=== PATIENT | female | born 1950 | race Hispanic/Latino ===

== ENCOUNTER 2017-11-24 07:40 | Day surgery (SDC) | payer MEDICARE ==
[2017-11-24] MEDS ORDERED: ECOTRIN PO NR (08:15)
[2017-11-24] MEDS: NACL 0.9% 500 ML 500 ML IV SCH ×3 (08:52→10:25)
[2017-11-24 09:03] LABS: Basophils # (Auto) 0.1 K/mm3 (0.0-0.1); Basophils % (Auto) 0.9 % (0.0-1.8); Eosinophils # (Auto) 0.1 K/mm3 (0.0-0.4); Eosinophils % (Auto) 0.8 % (0.0-4.3); Hemoglobin 13.5 gm/dl (10.1-14.3); Lymphocytes # (Auto) 2.8 K/mm3 (1.2-5.4); Lymphocytes % (Auto) 28.2 % (13.4-35.0); Mean Corpuscular HGB Conc 33 % (30-34); Mean Corpuscular Hemoglobin 29 pg (28-32); Mean Corpuscular Volume 87 fl (79-97); Monocytes # (Auto) 0.8 K/mm3 (0.0-0.8); Monocytes % (Auto) 8.1 % (0.0-7.3); Platelet Count 357 K/mm3 (140-440); Red Blood Count 4.72 M/mm3 (3.65-5.03); Red Cell Distribution Width 14.5 % (13.2-15.2)
[2017-11-24 09:24] LABS: Calcium 10.1 mg/dL (8.4-10.2)
[2017-11-24 09:29] LABS: INR 0.93 (0.87-1.13); Partial Thromboplastin Time 28.5 Sec. (24.2-36.6)
[2017-11-24] MEDS ORDERED: XYLOCAINE 2% INFILTRATI ONE (09:30)
[2017-11-24] MEDS ORDERED: NACL 0.9% 0 ML ONE (09:40)
[2017-11-24] MEDS: VERSED ONE ×2 (09:54→10:30)
[2017-11-24] MEDS: SUBLIMAZE ONE ×2 (09:55→10:30)
[2017-11-24] MEDS: HEPARIN 10,000 UNITS/10 ML ONE ×3 (09:55→10:34)
[2017-11-24] MEDS: XYLOCAINE 2% INFILTRATI ONE ×2 (09:55→10:30)
[2017-11-24] MEDS: CALAN ONE ×3 (09:55→10:34)
[2017-11-24] MEDS: NITROGLYCERIN SYRINGE 3 ML ONE ×4 (09:56→10:34)
[2017-11-24] MEDS: HEPARIN/NS 5000 UNIT/500ML(CATH LAB) 1,000 ML IR ONE ×2 (09:56→10:25)
--- NOTE | 2017-11-24 11:19 | Cardiac Catherization Report ---
CARDIAC CATHETERIZATION REFERRING DISPOSAL WORKER: Dr. Stefano Maradiaga. INDICATION FOR PROCEDURE: The patient is a very pleasant 67-year-old female with history of diabetes, hypertension, high cholesterol, who presents to Dr. Maradiaga just several days ago with severe shortness of breath, chest tightness. She is on Imdur, carvedilol, atorvastatin, aspirin and LIZETT inhibition, referred for left heart catheterization due to prominent symptoms. Echocardiogram reveals normal LV function, moderate MR, diastolic dysfunction. Risks, benefits, the alternatives discussed prior to obtaining informed consent. PROCEDURE IN DETAIL: The patient brought to supervisor labor gang in postoperative state, prepped and draped in sterile fashion. Matt's test in right hand was normal. A 2 mL of 2% lidocaine used to anesthetize the right wrist. A standard 6-Comoran hydrophilic sheath used to cannulate the right radial artery via modified Seldinger technique. All exchanges performed to exchange a J-tip guidewire. JL3.5 catheter used to engage the left main. No dampening or ventricularization. Cineangiography performed in all projections. JR4 catheter was used to cross the aortic valve under fluoroscopic guidance. Left ventriculography performed in 30 LAST and 30 [place]UGUESE projections via hand injections, catheter flushed. Manual pullback performed with continuous pressure monitoring. Catheter used to engage the right coronary. No dampening or ventricularization. Cineangiography performed in all projections. DATA: Aortic pressure is 110/60, LV pressure is 110, LVEDP of 10 mmHg. Left ventriculography revealed normal systolic performance with estimated ejection fraction of 55-60% with 2+ MR. No evidence of aortic stenosis. CORONARY ANATOMY: This is a right dominant system. Right coronary is a moderate sized vessel, courses AV groove, distally bifurcates in the posterior descending and posterolateral branch, long complex disease in the proximal and mid right coronary involving with a maximal narrowing of 95% in the mid segment. Left main, no significant disease, bifurcates left anterior descending and left circumflex. Left circumflex is a small vessel, but has a 99% ostial stenosis with EKTA 3 flow. LAD is a moderate sized vessel, courses anterior intergroove, wraps around the apex, gives collaterals to the distal right coronary. A 70% proximal/ostial LAD is noted, 70% proximal first diagonal is also noted. CONCLUSIONS: 1. Severe multivessel coronary disease including 99% ostial left circumflex and 70% ostial/proximal LAD, 70% proximal first diagonal and long complex 90% proximal/mid right coronary stenosis. 2. Preserved left ventricular systolic performance. 3. No evidence of aortic stenosis. 4. Moderate MR. The patient is clinically stable, chest pain free. At this point given multivessel disease, diabetes, I believe complete revascularization with coronary bypass is probably the best option. Standard radial care. She will be sent to [facility] with Dr. Alfonso Obrien for consideration of the same. She is clinically stable and asymptomatic for said transfer. Results of the procedure explained in length to the patient and family. All questions and concerns were addressed. JOB# [id number] MARIA ELENA/JULIANE
[2017-11-24 12:39] VITALS: BP 117/64
--- NOTE | 2017-11-25 14:56 | Short Stay Summary ---
Short Stay Documentation Date of service: 11/24/17 - History H&P: obtained from office - Allergies and Medications Current Medications: Allergies No Known Allergies Allergy (Verified 11/24/17 08:14) Home Medications Medication Instructions Recorded Confirmed Last Taken Type Aspirin [Adult Low Dose Aspirin EC] 81 mg PO QDAY 11/24/17 11/24/17 11/23/17 History Atorvastatin Calcium 20 mg PO QDAY 11/24/17 11/24/17 11/23/17 History Carvedilol 25 mg PO BID 11/24/17 11/24/17 11/23/17 History Furosemide [Lasix TAB] 40 mg PO BID 11/24/17 11/24/17 11/23/17 History Glimepiride [Amaryl] 2 mg PO QDAY 11/24/17 11/24/17 11/23/17 History ISOSORBIDE MONOnitrate [Imdur ER] 30 mg PO QDAY 11/24/17 11/24/17 11/23/17 History Levothyroxine Sodium 75 mcg PO QDAY 11/24/17 11/24/17 11/23/17 History Lisinopril [Zestril TAB] 10 mg PO QDAY 11/24/17 11/24/17 11/23/17 History Potassium Chloride [Klor-Con M20] 20 meq PO BID 11/24/17 11/24/17 11/23/17 History Sitagliptin Phos/Metformin HCl 50 - 500 mg PO QDAY 11/24/17 11/24/17 11/23/17 History [Janumet 50-500 mg Tablet] traMADol [Ultram 50 MG tab] 25 mg PO Q8HR PRN 11/24/17 11/24/17 1 Week Ago History ~11/17/17 - Brief post op/procedure progress note Date of procedure: 11/24/17 Pre-op diagnosis: chest pain Post-op diagnosis: other (CAD) Procedure: [facility] - see dictated cath report Anesthesia: local Estimated blood loss: none Condition: stable - Disposition Condition at discharge: Stable Disposition: [id number] ANOTHER TYPE HLTHCARE - Discharge Diagnoses (1) CAD (coronary artery disease) Status: Chronic (2) HTN (hypertension) Status: Chronic (3) Diabetes Status: Chronic (4) Hyperlipidemia Status: Chronic Short Stay Discharge Plan Diet: low fat, low cholesterol, low salt Wound: open to air, keep clean and dry, per your surgeon's advice Follow up with: PRIMARY CARE, [Primary Care Provider] - 7 Days
== END 2017-11-24 13:10 | disposition other institution (70) ==
LOC: CATHLABREC 07:40
PROVIDERS: ATTEND Internal Medicine
DX: I25.119 Atherosclerotic heart disease of native coronary artery with unspecified angina pectoris (principal); I10 Essential (primary) hypertension; E11.9 Type 2 diabetes mellitus without complications; E78.5 Hyperlipidemia, unspecified; E03.9 Hypothyroidism, unspecified; E78.00 Pure hypercholesterolemia, unspecified; Z90.710 Acquired absence of both cervix and uterus; Z82.49 Family history of ischemic heart disease and other diseases of the circulatory system; Z87.891 Personal history of nicotine dependence; Z98.42 Cataract extraction status, left eye; Z98.41 Cataract extraction status, right eye; Z79.899 Other long term (current) drug therapy; Z98.890 Other specified postprocedural states
CPT/HCPCS: 36415; 80048; 82962; 85025; 85610; 85730; 93005; 93010; 93458; 99156; 99157; C1894; J1644; J2250; J3010; J7040; J0153; Q9967

== ENCOUNTER 2018-12-06 07:41 | Day surgery (SDC) | payer MEDICARE ==
[2018-12-06 07:10] LABS: Basophils # (Auto) 0.1 K/mm3 (0.0-0.1); Basophils % (Auto) 0.8 % (0.0-1.8); Eosinophils # (Auto) 0.2 K/mm3 (0.0-0.4); Eosinophils % (Auto) 1.8 % (0.0-4.3); Hematocrit 34.6 % (30.3-42.9); Lymphocytes # (Auto) 2.7 K/mm3 (1.2-5.4); Lymphocytes % (Auto) 30.3 % (13.4-35.0); Mean Corpuscular HGB Conc 32 % (30-34); Mean Corpuscular Volume 89 fl (79-97); Monocytes # (Auto) 0.9 K/mm3 (0.0-0.8); Monocytes % (Auto) 9.9 % (0.0-7.3); Platelet Count 298 K/mm3 (140-440); Red Blood Count 3.89 M/mm3 (3.65-5.03); Red Cell Distribution Width 13.8 % (13.2-15.2)
[2018-12-06 07:27] LABS: Calcium 9.1 mg/dL (8.4-10.2)
[~2018-12-06 07:41] MED LIST: SODIUM CHLORIDE 0.9% 500 ML 500 ML IV SCH
[2018-12-06 08:04] LABS: INR 1.04 (0.87-1.13)
[2018-12-06] MEDS ORDERED: HEPARIN/NS 5000 UNIT/500ML 1,000 ML IR ONE (08:11)
[2018-12-06] MEDS ORDERED: HEPARIN 10,000 UNITS/10 ML VIAL ONE (08:11)
[2018-12-06] MEDS: MIDAZOLAM 2 MG/2 ML INJ ONE ×2 (08:40→08:42)
[2018-12-06] MEDS: fentaNYL 100 MCG/2 ML INJ ONE ×2 (08:40→08:42)
[2018-12-06] MEDS: LIDOCAINE (2%) 20 MG/1 ML VIAL 20 ML MDV INFILTRATI ONE ×2 (08:41→08:43)
--- NOTE | 2018-12-06 10:08 | Cardiac Catherization Report ---
CARDIAC CATHETERIZATION REFERRING PHYSICIAN: Angelito Elaine MD INDICATION FOR PROCEDURE: The patient is a pleasant 68-year-old female with history of coronary bypass surgery, having accelerating symptoms including accelerating shortness of breath, which was thought to be an anginal equivalent. She is sent for repeat heart catheterization. Risks, benefits, alternatives explained at length prior to obtaining informed consent. PROCEDURE IN DETAIL: The patient was brought to catheterization lab in a postabsorptive state, prepped and draped in sterile fashion. Right groin was used due to history of coronary artery bypass graft. A standard 5-Czech sheath used to cannulate the right common femoral artery via modified Seldinger technique. All exchanges performed to exchange a J-tip guidewire. JL3.5 of catheter was used to engage the left main. No dampening or ventricularization. Cineangiography performed in all projections. JR4 catheter used to cross the aortic valve under fluoroscopic guidance. Left ventriculography performed in 30 LAST and 30 [place] projections via hand injections, catheter flushed. Manual pullback performed with continuous pressure monitoring. Catheter used to engage the right coronary. No dampening or ventricularization. Cineangiography performed in all projections. JR4 catheter used to engage both SVGs, one to the right coronary and one to the OM. Angiography performed in all projections. Next, catheter used to engage the left subclavian, very tortuous, difficult vessel, selective third order mid left subclavian angiography performed, reveals no stenosis. Selective FELDMAN angiography is performed. Next, catheter removed carefully from the body over wire, sheath removed. Manual pressure was used to achieve hemostasis. There were no immediate complications identified. The patient tolerated the procedure well. DATA: Aortic pressure is 170/80, LV pressure is 170. LVEDP of 20 mmHg. Left ventriculography reveals normal systolic performance with estimated ejection fraction of 55-60%. No evidence of aortic stenosis. The patient remained in normal sinus rhythm throughout the procedure. CORONARY ANATOMY: This is a right dominant system. It should be noted that the entire coronary tree is quite small, unchanged from prior catheterization. Her right coronary is a small vessel, occluded in the mid segment. SVG to distal right coronary is widely patent. Left main is a small vessel, bifurcates to left anterior descending and left circumflex. LAD is occluded in the mid segment. Circumflex is occluded ostially. SVG to OM is widely patent, FELDMAN to LAD is also widely patent. I directly supervised the administration of moderate sedation from 8:42 a.m. to 9:00 a.m. with fentanyl and Versed. No immediate complications. CONCLUSIONS: 1. Severe [place] epicardial coronary disease as aforementioned. A. 100% chronic total occlusion of mid LAD. B. 100% chronic total occlusion of proximal left circumflex. C. 100% chronic total occlusion of mid right coronary. D. Patent SVG to right coronary. E. Patent SVG to OM. F. Patent FELDMAN to LAD. G. Patent left subclavian artery without gradient. 2. Normal left ventricular systolic performance, estimated ejection fraction of 55-60%. 3. No evidence of aortic stenosis. 4. Normal LVEDP. The patient is clinically stable, no chest pain. The patient is clinically stable at this point. The etiology of her dyspnea is unclear at this point. Continue to optimize medical therapy, standard groin care. Results of the procedure were explained at length to the patient and family. All questions and concerns were addressed. Follow up in the office. JOB# [id number] SBWali/NTS
[2018-12-06 13:16] VITALS: BP 159/72
--- NOTE | 2018-12-06 13:47 | Short Stay Summary ---
Short Stay Documentation Date of service: 12/06/18 - History H&P: obtained from office - Allergies and Medications Current Medications: Allergies No Known Allergies Allergy (Verified 11/24/17 08:14) Home Medications Medication Instructions Recorded Confirmed Last Taken Type Aspirin [Adult Low Dose Aspirin EC] 81 mg PO QDAY 11/24/17 12/06/18 12/06/18 05:00 History Atorvastatin Calcium 20 mg PO QDAY 11/24/17 12/06/18 12/04/18 History Furosemide [Lasix TAB] 40 mg PO BID 11/24/17 12/06/18 12/04/18 History Levothyroxine Sodium 75 mcg PO QDAY 11/24/17 12/06/18 12/04/18 History Lisinopril [Zestril TAB] 10 mg PO QDAY 11/24/17 12/06/18 12/04/18 History Sitagliptin Phos/Metformin HCl 50 - 500 mg PO QDAY 11/24/17 12/06/18 12/04/18 History [Janumet 50-500 mg Tablet] Ferrous Sulfate 324 mg PO QDAY 12/06/18 12/06/18 12/04/18 History Meloxicam [Mobic] 7.5 mg PO QDAY 12/06/18 12/06/18 12/04/18 History Metoprolol [Lopressor] 25 mg PO BID 12/06/18 12/06/18 12/04/18 History - Brief post op/procedure progress note Date of procedure: 12/06/18 Pre-op diagnosis: CAD Post-op diagnosis: same Procedure: [facility] - see dictated cath report Anesthesia: local Estimated blood loss: none Condition: stable - Disposition Condition at discharge: Stable Disposition: [id number] TO HOME OR SELFCARE - Discharge Diagnoses (1) CAD (coronary artery disease) Status: Chronic (2) History of coronary artery bypass graft Status: Chronic (3) HTN (hypertension) Status: Chronic (4) Diabetes Status: Chronic (5) Hyperlipidemia Status: Chronic Short Stay Discharge Plan Diet: low fat, low cholesterol, low salt, diabetic Wound: open to air, keep clean and dry, per your surgeon's advice Additional Instructions: Make follow up appoint with Dr.S. Elaine in 1 week [phone] Follow up with: PRIMARY CARE, [Primary Care Provider] - 7 Days Forms: CardCath PCI D/C Instructions, Post Sedation D/C Instructions
== END 2018-12-06 13:40 | disposition home or self-care (01) ==
LOC: CATHLABREC 07:41
PROVIDERS: ATTEND Internal Medicine
DX: R06.00 Dyspnea, unspecified (principal); K30 Functional dyspepsia; R93.89 Abnormal findings on diagnostic imaging of other specified body structures; E11.9 Type 2 diabetes mellitus without complications; E78.5 Hyperlipidemia, unspecified; I10 Essential (primary) hypertension; E66.9 Obesity, unspecified; I48.0 Paroxysmal atrial fibrillation; I25.810 Atherosclerosis of coronary artery bypass graft(s) without angina pectoris; E78.00 Pure hypercholesterolemia, unspecified; E03.9 Hypothyroidism, unspecified; Z68.39 Body mass index [BMI] 39.0-39.9, adult; Z79.01 Long term (current) use of anticoagulants; Z95.1 Presence of aortocoronary bypass graft; Z79.82 Long term (current) use of aspirin; Z79.84 Long term (current) use of oral hypoglycemic drugs; Z79.899 Other long term (current) drug therapy; Z87.891 Personal history of nicotine dependence; Z90.710 Acquired absence of both cervix and uterus; Z98.890 Other specified postprocedural states; Z82.49 Family history of ischemic heart disease and other diseases of the circulatory system; Z83.3 Family history of diabetes mellitus
CPT/HCPCS: 36415; 80048; 82962; 85025; 85610; 85730; 93005; 93010; 93459; 99156; C1769; J1644; J2250; J3010; J7040; Q9967